=== PATIENT | male | born 1960 | race Caucasian/White ===

== ENCOUNTER 2022-03-07 08:36 | Outpatient (CLI) | payer BC, SELFPAY ==
[2022-03-07 19:19] LABS: Alanine Aminotransferase 39 U/L (6-50); Albumin Level 4.4 g/dL (3.5-5.1); Alkaline Phosphatase 82 U/L (38-126); Anion Gap 11 mmol/L (8-16); Aspartate Amino Transferase 36 U/L (17-59); Bilirubin,Total 0.7 mg/dL (0.2-1.3); Blood Urea Nitrogen 19 mg/dL (9-20); Calcium 9.2 mg/dL (8.4-10.2); Carbon Dioxide 25 mmol/L (22-30); Chloride 103 mmol/L (98-107); Cholesterol 154 mg/dL (0-200); Estimated Glomerular Filt Rate > 60; Glucose 105 mg/dL (65-110); HDL Direct 37 mg/dL; Potassium 4.1 mmol/L (3.4-5.0); Sodium 139 mmol/L (137-145); Triglycerides 91 mg/dL (<150)
[2022-03-07 19:30] LABS: LDL Cholesterol Direct 92 mg/dL
[2022-03-07 19:48] LABS: Prostate Specific Antigen 0.8 ng/mL (< OR = 4.0)
== END 2022-03-07 08:37 | disposition home or self-care (01) ==
LOC: ANHGOSHLAB 08:38
PROVIDERS: PCP Internal Medicine; Visit Provider Family Medicine
DX: Z12.5 Encounter for screening for malignant neoplasm of prostate (principal); E78.5 Hyperlipidemia, unspecified; R63.5 Abnormal weight gain; Z13.228 Encounter for screening for other metabolic disorders
CPT/HCPCS: 36415; 80053; 80061; 84153; 84443; G0103

== ENCOUNTER 2023-03-02 09:10 | Outpatient (CLI) | payer BC, SELFPAY ==
[2023-03-02 14:47] LABS: Alanine Aminotransferase 37 U/L (6-50); Albumin Level 4.5 g/dL (3.5-5.1); Alkaline Phosphatase 67 U/L (38-126); Anion Gap 10 mmol/L (8-16); Aspartate Amino Transferase 48 U/L (17-59); Bilirubin,Total 0.7 mg/dL (0.2-1.3); Blood Urea Nitrogen 16 mg/dL (9-20); Calcium 9.4 mg/dL (8.4-10.2); Carbon Dioxide 23 mmol/L (22-30); Chloride 106 mmol/L (98-107); Cholesterol 160 mg/dL (0-200); Estimated Glomerular Filt Rate > 60; Glucose 94 mg/dL (65-110); HDL Direct 41 mg/dL; Potassium 4.3 mmol/L (3.4-5.0); Sodium 139 mmol/L (137-145); Triglycerides 74 mg/dL (<150); Uric Acid 4.5 mg/dL (3.5-8.5)
[2023-03-02 15:01] LABS: LDL Cholesterol Direct 93 mg/dL
[2023-03-02 15:08] LABS: Thyroid Stimulating Hormone Reflex 0.217 uIU/mL (0.465-4.68)
[2023-03-02 15:13] LABS: Prostate Specific Antigen 0.8 ng/mL (< OR = 4.0)
[2023-03-02 18:20] LABS: Free T4 Free Thyroxine Reflex 1.94 ng/dL (0.78-2.19)
[2023-03-02 20:55] LABS: Total Triiodothyronine (T3) 1.33 NG/ML (0.97-1.69)
== END 2023-03-02 09:11 | disposition home or self-care (01) ==
LOC: ANHGOSHLAB 09:11
PROVIDERS: PCP Family Medicine; Visit Provider Family Medicine
DX: Z12.5 Encounter for screening for malignant neoplasm of prostate (principal); M10.9 Gout, unspecified; E03.9 Hypothyroidism, unspecified; Z13.29 Encounter for screening for other suspected endocrine disorder; Z13.220 Encounter for screening for lipoid disorders; Z13.228 Encounter for screening for other metabolic disorders
CPT/HCPCS: 36415; 80053; 80061; 84153; 84439; 84443; 84480; 84550; G0103

== ENCOUNTER 2023-08-30 10:44 | Outpatient (CLI) | payer MEDICARE, OTHER, SELFPAY ==
[2023-08-30 13:51] LABS: Thyroid Stimulating Hormone Reflex 0.388 uIU/mL (0.465-4.68)
[2023-08-30 14:44] LABS: Free T4 Free Thyroxine Reflex 1.89 ng/dL (0.78-2.19)
[2023-08-30 15:24] LABS: Total Triiodothyronine (T3) 1.28 NG/ML (0.97-1.69)
== END 2023-08-30 10:45 | disposition home or self-care (01) ==
LOC: ANHGOSHLAB 10:46
PROVIDERS: PCP Family Medicine; Visit Provider Family Medicine
DX: E03.9 Hypothyroidism, unspecified (principal)
CPT/HCPCS: 36415; 84439; 84443; 84480

== ENCOUNTER 2024-03-06 11:09 | Outpatient (CLI) | payer MEDICARE, OTHER, SELFPAY ==
[2024-03-06 14:15] LABS: Free T4 Free Thyroxine 1.33 ng/mL (0.78-2.19)
[2024-03-06 14:35] LABS: Alanine Aminotransferase 28 U/L (6-50); Albumin Level 4.2 g/dL (3.5-5.1); Alkaline Phosphatase 60 U/L (38-126); Anion Gap 8 mmol/L (4-12); Aspartate Amino Transferase 42 U/L (17-59); Bilirubin,Total 0.8 mg/dL (0.2-1.3); Blood Urea Nitrogen 21 mg/dL (9-20); Calcium 9.2 mg/dL (8.4-10.2); Carbon Dioxide 26 mmol/L (22-30); Chloride 105 mmol/L (98-107); Cholesterol 167 mg/dL (0-200); Estimated Glomerular Filt Rate > 60; Glucose 94 mg/dL (65-110); HDL Direct 47 mg/dL; Potassium 4.5 mmol/L (3.4-5.0); Sodium 139 mmol/L (137-145); Triglycerides 101 mg/dL (<150); Uric Acid 4.5 mg/dL (3.5-8.5)
[2024-03-06 14:55] LABS: LDL Cholesterol Direct 98 mg/dL
[2024-03-06 15:34] LABS: Prostate Specific Antigen 0.8 ng/mL (< OR = 4.0); Thyroid Stimulating Hormone 0.561 uIU/mL (0.465-4.680)
== END 2024-03-06 11:10 | disposition home or self-care (01) ==
LOC: ANHGOSHLAB 11:10
PROVIDERS: PCP Family Medicine; Visit Provider Family Medicine
DX: E78.5 Hyperlipidemia, unspecified (principal); E03.9 Hypothyroidism, unspecified; Z13.228 Encounter for screening for other metabolic disorders; Z12.5 Encounter for screening for malignant neoplasm of prostate; M10.9 Gout, unspecified
CPT/HCPCS: 36415; 80053; 80061; 84153; 84439; 84443; 84550; G0103

== ENCOUNTER 2024-03-14 15:12 | Outpatient (CLI) | payer MEDICARE, OTHER, SELFPAY ==
--- NOTE | ~2024-03-14 | US_ITS ---
EXAMINATION: US thyroid DATE: 03/14/2024 15:30 INDICATION: Nontoxic goiter TECHNIQUE: Multiple ultrasound images of the thyroid were obtained. COMPARISON: None. FINDINGS: The right thyroid lobe measures 3.4 x 1.1 x 1.3 cm. The left thyroid lobe measures 3.0 x 1.1 x 1.1 c m. Thyroid isthmus measures 3 mm in maximal thickness. No discrete nodules identified. There is arabella l echotexture, echogenicity and vascular flow throughout the thyroid gland. IMPRESSION: 1. Unremarkable thyroid ultrasound. Reviewed, dictated and finalized at location A.
== END 2024-03-14 15:13 ==
LOC: GOSHIMG 15:13
PROVIDERS: PCP Family Medicine; Visit Provider Family Medicine
DX: E04.1 Nontoxic single thyroid nodule (principal)
CPT/HCPCS: 76536

== ENCOUNTER 2024-10-17 09:05 | Outpatient (CLI) | payer MEDICARE, OTHER, SELFPAY ==
--- OUTSIDE RECORDS SUMMARY | 2024-10-17 10:05 | XMS_ITS | Clinical Summary ---
Author Organization [facility] Address [address] [place] [address] Phone Care Team Providers Care Files Supervisor Name Role Phone Yao Romero MD Primary Care Provider +1- [phone] Allergies No known active allergies Medications LEVOTHYROXINE SODIUM PO Take by mouth. Active SIMVASTATIN PO Take by mouth. Active aspirin EC 81 MG Tablet Delayed Response Take 81 mg by mouth daily. Active HYDROcodone-stephanie taminophen (NORCO) 5-325 MG TabletIndicatio ns:Closed fibular fracture Take 1 Tablet by mouth every 6 hours as needed for Moderate or more severe pain. 12 Tablet 11/23/2021 Active Encounters Date Type Department Care Team Description 08/30/2024 [facility] [address] [place] [address] Samanta Nuno, CLINICAL NEUROPSYCHOLOGIST, CASE WORKER from Last 3 Months Social History Tobacco Use Types Packs/Day Years Used Date Smoking Tobacco: Never Smokeless Tobacco: Never Alcohol Use Standard Drinks/Week Comments Not Currently 0 (1 standard drink = 0.6 oz pur e alcohol) Sex and Gender Information Value Date Recorded Sex Assigned at Not on file Legal Sex Male 7:54 AM DECKHAND MAINTENANCE Gender Identity Not on file Sexual Orientation Not on file Last Filed Vital Signs Vital Sign Reading Time Taken Comments Blood Pressure 134/73 07/02/2022 5:45 PM DECKHAND MAINTENANCE Pulse 87 07/02/2022 6:02 PM DECKHAND MAINTENANCE Temperature 37.8 C (100 F) 07/02/2022 6:01 PM DECKHAND MAINTENANCE Respiratory Rate 20 07/02/2022 6:02 PM DECKHAND MAINTENANCE Oxygen Saturation 96% 07/02/2022 6:02 PM DECKHAND MAINTENANCE Inhaled Oxygen Concentration - - Weight 127 kg (280 lb) 07/02/2022 5:02 PM DECKHAND MAINTENANCE Height 182.9 cm (6') 07/02/2022 5:02 PM DECKHAND MAINTENANCE Body Mass Index 37.97 07/02/2022 5:02 PM DECKHAND MAINTENANCE Plan of Treatment Health Maintenance Due Date Last Done Comments Hepatitis C Virus (HCV) Screening 1960 TdaP Immunization 1960 Colonoscopy 2003 Colorectal Cancer Screening 2003 Cologuard 2008 Immunochemical Fecal Occult Blood 2008 Pneumococcal Immunization (5 0+ years) (1 of 1 - PCV) 2008 PSA Discussion 2013 Influenza Immunization (#1) 2024 SARS-COV-2 Immunization ( season) 2024 06/29/2021, 10/25/2020, 09/27/2020 Respiratory Syncytial Virus (RSV) Immunization (Adult) (1 - 1-dose 75+ series) 2033 Zoster Immunization Completed 03/17/2021, 01/12/2021 Hepatitis B Immunization Aged Out No longer eligible based on patient's age to complete this topic Meningococcal Immunization (ACWY) Aged Out No longer eligible b ased on patient's age to complete this topic Rotavirus Immunization Aged Out No lo nger eligible based on patient's age to complete this topic Insurance [facility] Care Teams Files Supervisor Relationship Specialty Start Date End Date Yao Romero MD [address] [place] [address] PCP - General Internal Medicine 11/23/21
--- OUTSIDE RECORDS SUMMARY | 2024-10-17 10:05 | XMS_ITS | Encounter Summary ---
Author Organization [facility] Address [address] [place] [address] Phone Care Team Providers Care Materials Handling Equipment Operator Name Role Phone Yao Romero MD Primary Care Provider +1- [phone] Encounter Details Date Type Department Care Team (Late st Contact Info) Description 11/25/[address] [facility] Scheduling [address] [place] [address] Chago Burkett MD [address] [place] [address] Social History Tobacco Use Types Packs/Day Years Used Date Smoking Tobacco: Never Smokeless Tobacco: Never Alcohol Use Standard Drinks/Week Comments Not Currently 0 (1 standard drink = 0.6 oz pur e alcohol) Sex and Gender Information Value Date Recorded Sex Assigned at Not on file Legal Sex Male 7:54 AM WORKERS COMPENSATION CLAIMS SPECIALIST Gender Identity Not on file Sexual Orientation Not on file COVID-19 Exposure Response Date Recorded In the last 10 days, have yo u been in contact with someone who was confirmed or suspected to have Coronavirus/COVID-19? No / Unsure 11/23/2021 9:00 AM CDT documented as of this encounter Plan of Treatment Not on file documented as of this encounter Visit Diagnoses Not on filedocumented in this encounter Additional Health Concerns Infection Onset Date Last Indicated Resolved Time COVID - 19 07/02/2022 07/02/2022 07/12/2022 12:1 6 AM WORKERS COMPENSATION CLAIMS SPECIALIST documented as of this encounter Care Teams Materials Handling Equipment Operator Relationship Specialty Start Date End Date Yao Romero MD [facility] [address] [place] [address] PCP - General Internal Medicine 11/23/21 documented as of this encounter
[2024-10-17 13:40] LABS: Basophils Absolute Auto 0.1 K/mm3 (0.0-0.1); Basophils Percent Auto 0.8 % (0.2-1.2); Eosinophils Absolute Auto 0.2 K/mm3 (0-0.3); Eosinophils Percent Auto 3.6 % (0-4.4); Hemoglobin 15.6 g/dL (14.0-18.0); Immature Granulocyte Absolute 0.04 K/mm3 (0.00-0.031); Immature Granulocyte Percent A 0.6 % (0-0.5); Lymphocytes Absolute Auto 1.71 K/mm3 (0.9-3.2); Lymphocytes Percent Auto 25.9 % (18.3-44.2); Mean Corpuscular HGB Conc 32.5 g/dl (32-36); Mean Corpuscular Hemoglobin 30.1 pg (26-34); Mean Corpuscular Volume 92.5 fl (80-100); Mean Platelet Volume 11.7 fl (7.4-10.4); Monocytes Absolute Auto 0.5 K/mm3 (0.1-0.6); Neutrophils Absolute Auto 4.1 K/mm3 (1.3-6.7); Neutrophils Percent Auto 62.1 % (45.5-73.1); Platelet Count Result 183 k/mm3 (150-375); Red Blood Count 5.19 M/mm3 (4.6-6.20); Red Cell Distribution Width 13.5 % (11.5-14.5); White Blood Count 6.6 K/mm3 (4.5-10.0)
[2024-10-17 14:08] LABS: Alanine Aminotransferase 28 U/L (6-50); Albumin Level 4.6 g/dL (3.5-5.1); Alkaline Phosphatase 59 U/L (38-126); Anion Gap 8 mmol/L (4-12); Aspartate Amino Transferase 33 U/L (17-59); Bilirubin,Total 0.8 mg/dL (0.2-1.3); Blood Urea Nitrogen 21 mg/dL (9-20); Calcium 9.6 mg/dL (8.4-10.2); Carbon Dioxide 26 mmol/L (22-30); Chloride 106 mmol/L (98-107); Cholesterol 155 mg/dL (0-200); Estimated Glomerular Filt Rate > 60; Glucose 85 mg/dL (65-110); HDL Direct 46 mg/dL; Potassium 4.4 mmol/L (3.4-5.0); Sodium 140 mmol/L (137-145); Triglycerides 117 mg/dL (<150); Uric Acid 4.8 mg/dL (3.5-8.5)
[2024-10-17 14:19] LABS: Hemoglobin A1C 5.1 % (<5.7)
[2024-10-17 14:22] LABS: LDL Cholesterol Direct 79 mg/dL
[2024-10-17 14:37] LABS: Prostate Specific Antigen 0.8 ng/mL (< OR = 4.0)
[2024-10-17 14:40] LABS: Vitamin D 25 Hydroxy 41.1 ng/mL
== END 2024-10-17 09:06 | disposition home or self-care (01) ==
LOC: ANHGOSHLAB 09:06
PROVIDERS: PCP Family Medicine; Visit Provider Family Medicine
DX: E03.9 Hypothyroidism, unspecified (principal); E78.5 Hyperlipidemia, unspecified; M10.00 Idiopathic gout, unspecified site; R73.9 Hyperglycemia, unspecified; E53.8 Deficiency of other specified B group vitamins; Z12.5 Encounter for screening for malignant neoplasm of prostate; Z79.899 Other long term (current) drug therapy
CPT/HCPCS: 36415; 80053; 80061; 82306; 82607; 83036; 84153; 84443; 84550; 85025; G0103

== ENCOUNTER 2025-04-24 07:55 | Outpatient (CLI) | payer MEDICARE, OTHER, SELFPAY ==
--- OUTSIDE RECORDS SUMMARY | 2025-04-24 07:58 | XMS_ITS | Clinical Summary ---
Author Organization [facility] Address [address] [place] [address] Phone Care Team Providers Care Lost And Found Clerk Name Role Phone Yao Romero MD Primary Care Provider +1- [phone] Allergies No known active allergies Medications LEVOTHYROXINE SODIUM PO Take by mouth. Active SIMVASTATIN PO Take by mouth. Active aspirin EC 81 MG Tablet Delayed Response Take 81 mg by mouth daily. Active HYDROcodone-stephanie taminophen (NORCO) 5-325 MG TabletIndicatio ns:Closed fibular fracture Take 1 Tablet by mouth every 6 hours as needed for Moderate or more severe pain. 12 Tablet 11/23/2021 Active Social History Tobacco Use Types Packs/Day Years Used Date Smoking Tobacco: Never Smokeless Tobacco: Never Alcohol Use Standard Drinks/Week Comments Not Currently 0 (1 standard drink = 0.6 oz pur e alcohol) Sex and Gender Information Value Date Recorded Sex Assigned at Not on file Legal Sex Male 7:54 AM RECORD CHANGER ASSEMBLER Gender Identity Not on file Sexual Orientation Not on file Last Filed Vital Signs Vital Sign Reading Time Taken Comments Blood Pressure 134/73 07/02/2022 5:45 PM RECORD CHANGER ASSEMBLER Pulse 87 07/02/2022 6:02 PM RECORD CHANGER ASSEMBLER Temperature 37.8 C (100 F) 07/02/2022 6:01 PM RECORD CHANGER ASSEMBLER Respiratory Rate 20 07/02/2022 6:02 PM RECORD CHANGER ASSEMBLER Oxygen Saturation 96% 07/02/2022 6:02 PM RECORD CHANGER ASSEMBLER Inhaled Oxygen Concentration - - Weight 127 kg (280 lb) 07/02/2022 5:02 PM RECORD CHANGER ASSEMBLER Height 182.9 cm (6') 07/02/2022 5:02 PM RECORD CHANGER ASSEMBLER Body Mass Index 37.97 07/02/2022 5:02 PM RECORD CHANGER ASSEMBLER Plan of Treatment Health Maintenance Due Date Last Done Comments Hepatitis C Virus (HCV) Screening 1960 TdaP Immunization 1958 Cologuard 2003 Colonoscopy 2003 Colorectal Cancer Screening 2003 Immunochemical Fecal Occult Blood 2003 Pneumococcal Immunization (5 0+ years) (1 of 1 - PCV) 2008 PSA Discussion 2013 SARS-COV-2 Immunization (4 - 2023- season) 2024 06/29/2021, 10/25/2020, 09/27/2020 Influenza Immunization (#1) 2025 Respiratory Syncytial Virus (RSV) Immunization (Adult) (1 - 1-dose 75+ series) 2033 Zoster Immunization Completed 03/17/2021, 01/12/2021 Hepatitis B Immunization Aged Out No longer eligible based on patient's age to complete this topic Human Papillomavirus (HPV) Immunization Aged Out No longer eligible b ased on patient's age to complete this topic Meningococcal Immunization (ACWY) Aged Out No longer eligible b ased on patient's age to complete this topic Rotavirus Immunization Aged Out No lo nger eligible based on patient's age to complete this topic [place] [address] [address] Care Teams Lost And Found Clerk Relationship Specialty Start Date End Date Yao Romero MD [address] [place] [address] [address] [place] [address] PCP - General Internal Medicine 11/23/21
--- OUTSIDE RECORDS SUMMARY | 2025-04-24 07:58 | XMS_ITS | Encounter Summary ---
Author Organization [facility] Address [address] [place] [address] Phone Care Team Providers Care Cs Associate Name Role Phone Yao Romero MD Primary Care Provider +1- [phone] Encounter Details Date Type Department Care Team (Late st Contact Info) Description 11/25/2021 [facility] [address] [place] [address] Chago Burkett MD [address] [place] [address] Social History Tobacco Use Types Packs/Day Years Used Date Smoking Tobacco: Never Smokeless Tobacco: Never Alcohol Use Standard Drinks/Week Comments Not Currently 0 (1 standard drink = 0.6 oz pur e alcohol) Sex and Gender Information Value Date Recorded Sex Assigned at Not on file Legal Sex Male 7:54 AM SHEEP AND WHEAT FARMER Gender Identity Not on file Sexual Orientation [...] 19 07/02/2022 07/02/2022 07/12/2022 12:1 6 AM SHEEP AND WHEAT FARMER documented as of this encounter Care Teams Cs Associate Relationship Specialty Start Date End Date Yao Romero MD [facility] [address] [place] [address] PCP - General Internal Medicine 11/23/21 documented as of this encounter
[2025-04-24 18:24] LABS: Alanine Aminotransferase 31 U/L (6-50); Albumin Level 4.2 g/dL (3.5-5.1); Alkaline Phosphatase 65 U/L (38-126); Anion Gap 8 mmol/L (4-12); Aspartate Amino Transferase 28 U/L (17-59); Bilirubin,Total 0.7 mg/dL (0.2-1.3); Blood Urea Nitrogen 20 mg/dL (9-20); Calcium 9.2 mg/dL (8.4-10.2); Carbon Dioxide 26 mmol/L (22-30); Chloride 106 mmol/L (98-107); Estimated Glomerular Filt Rate > 60; Glucose 93 mg/dL (65-110); Potassium 4.4 mmol/L (3.4-5.0); Sodium 140 mmol/L (137-145); Total Protein 7.1 g/dL (6.3-8.2)
[2025-04-24 18:43] LABS: Thyroid Stimulating Hormone Reflex 2.480 uIU/mL (0.465-4.68)
== END 2025-04-24 07:56 | disposition home or self-care (01) ==
LOC: ANHGOSHLAB 07:56
PROVIDERS: PCP Family Medicine; Visit Provider Family Medicine
DX: E03.9 Hypothyroidism, unspecified (principal); E78.5 Hyperlipidemia, unspecified; Z79.899 Other long term (current) drug therapy
CPT/HCPCS: 36415; 80053; 84443